=== PATIENT | male | born 1940 | race Caucasian/White ===

== ENCOUNTER 2018-10-19 10:38 | Day surgery (SDC) | payer MEDICARE, BC ==
[~2018-10-19] VITALS: Ht 182.9 cm; Wt 113.3 kg
[2018-10-19] VITALS (12 sets, daily range): BP systolic 143–186; BP diastolic 71–100
[2018-10-19] MEDS ORDERED: iohexol 350 MG/ML 50ML vial IV ONE (11:50)
[2018-10-19] MEDS ORDERED: iohexol 350MG/ML 100ml bottle IV ONE (11:50)
[2018-10-19] MEDS ORDERED: midazolam 2 mg/2 ml injection ONE (11:50)
[2018-10-19] MEDS ORDERED: fentaNYL/PF 50MCG/1 ML 2ML syringe ONE (11:50)
[2018-10-19] MEDS ORDERED: LIDOcaine 1% 30ml preserv. free vial ONE (11:50)
[2018-10-19] MEDS ORDERED: nitroGLYCERIN 0.4mg SUBLingual tab SL PRN (12:10)
[2018-10-19] MEDS ORDERED: LORazepam 0.5 MG tablet PO PRN (12:10)
[2018-10-19] MEDS ORDERED: glucagon, human recombinant 1mg kit SUBCUT PRN (12:10)
[2018-10-19] MEDS ORDERED: MESSAGE TO PHARMACY PO ONE (12:10)
[2018-10-19] MEDS ORDERED: normal saline 1,000 ML IV SCH (12:10)
[2018-10-19] MEDS ORDERED: dextrose ORAL solution 15 GM/59 ML bottle PO PRN ×2 (12:10)
[2018-10-19] MEDS ORDERED: insulin Lispro (HumaLOG) vial - multi-dose SQ SCH (12:10)
[2018-10-19] MEDS ORDERED: diphenhydrAMINE 25mg capsule PO PRN (12:10)
[2018-10-19] MEDS ORDERED: dextrose 50%-water 50ml dispensing syringe IV PRN ×2 (12:10)
[2018-10-19] MEDS ORDERED: diphenhydrAMINE 50 mg/ml inj ONE (12:26)
[2018-10-19] MEDS ORDERED: LOSA25TA96 PO (12:30)
[2018-10-19] MEDS ORDERED: ATOR80TA PO (12:30)
[2018-10-19] MEDS ORDERED: NIA500ERT PO ×2 (12:30)
[2018-10-19] MEDS ORDERED: INSU100V30 SQ (12:30)
[2018-10-19] MEDS ORDERED: AMLO2.5T2 PO (12:30)
[2018-10-19] MEDS ORDERED: INSU100C10 SQ (12:30)
[2018-10-19] MEDS ORDERED: METO-384 PO (12:30)
[2018-10-19] MEDS ORDERED: ENAL10TA78 PO (12:30)
[2018-10-19] MEDS ORDERED: ASPI-1265 PO (12:30)
[2018-10-19] MEDS ORDERED: ondansetron/PF 4mg/2ml inj IV PRN (13:35)
[2018-10-19] MEDS ORDERED: HYDROcodone/acetaminophen 5mg/325mg tablet PO PRN (13:35)
[2018-10-19] MEDS ORDERED: proCHLORperazine 10 MG/2 ml inj IV PRN (13:35)
[2018-10-19] MEDS ORDERED: OXAZEpam 15mg capsule PO PRN (13:35)
[2018-10-19] MEDS ORDERED: HYDROcodone/acetaminophen 10/325mg tab PO PRN (13:35)
[2018-10-19] MEDS ORDERED: insulin glargine (Lantus) pen - multi-dose SQ SCH (21:00)
== END 2018-10-19 19:20 | disposition home or self-care (01) ==
LOC: SSTAY O 10:38
PROVIDERS: ATTEND Internal Medicine Cardiovascular Disease
DX: I25.10 Atherosclerotic heart disease of native coronary artery without angina pectoris (principal); G47.33 Obstructive sleep apnea (adult) (pediatric); I10 Essential (primary) hypertension; E11.9 Type 2 diabetes mellitus without complications; I25.2 Old myocardial infarction; E66.01 Morbid (severe) obesity due to excess calories; Z68.33 Body mass index [BMI] 33.0-33.9, adult; Z90.49 Acquired absence of other specified parts of digestive tract; Z87.891 Personal history of nicotine dependence; Z79.899 Other long term (current) drug therapy; Z79.4 Long term (current) use of insulin
CPT/HCPCS: 82948; 93458; 99152; 99153; C1769; J1200; J1644; J2001; J2250; J3010; J7030; Q9967; A4620; A6258; C1760; J1815